=== PATIENT | male | born 1955 | race Caucasian/White ===

== ENCOUNTER → 2017-02-06 | Outpatient (CLI) | payer SELFPAY ==
[~2017-02-06] MED LIST: ASPIRIN LO-DOSE81 MG PO; BENADRYL25 MG PO; COLACE100 MG PO; CORDARONE,PACE200 MG PO; FAMOTIDINE20 MG PO; HUMIBID LA (MU600 MG PO; LIPITOR40 MG PO; LOPRESSOR25 MG PO; NICODERM (HABIT14 MG TRANS; NICODERM/HABITR21 MG TRANS; NORCO 5-325 MG1 TAB PO; PLAVIX75 MG PO; PROVENTIL OR V6.7 GM INH; ZITHROMAX250 MG PO
[2017-02-06 10:55] LABS: ALBUMIN 3.6 gm/dL (3.5-5.0); ALK PHOS 113 IU/L (33-138); ALT 21 IU/L (12-78); AST 16 IU/L (10-40); TOTAL BILIRUBIN 0.3 mg/dL (0.0-1.5); TOTAL PROTEIN 7.5 g/dL (6.0-8.4)
== END | disposition disaster alternative care site (69) ==
LOC: LNHI 10:30
PROVIDERS: Internal Medicine Interventional Cardiology
DX: I25.10 Atherosclerotic heart disease of native coronary artery without angina pectoris (principal); E78.5 Hyperlipidemia, unspecified